=== PATIENT | male | born 1990 | race Caucasian/White ===

== ENCOUNTER 2018-02-25 09:29 | Emergency (ER) | payer OTHER ==
[~2018-02-25] VITALS: Ht 170.2 cm; Wt 74.8 kg
[~2018-02-25 09:29] MED LIST: AMPDEX10CR PO; BUPRENORPHIN-N1 EACH SL; Benadryl 50 mg50 MG PO; CLIN300 PO; CRUTCH2 USE; Cleocin HCl150 MG PO; Cleocin HCl300 MG PO; DIPHTC TP; DOXY100 PO; HYDACE5325 PO; HYDMOR2 PO; HYDMOR4 PO; HYDR1TAB94 PO; IBUP800 PO; Keflex500 MG PO; MAGIC MOUTHWASH; METCAR750 PO; NAPR500 PO; PRED10 PO; PRED20 PO; Percocet 5-3251 EACH PO; Prednisone20 MG PO; RXHYDMOR2 PO; SACC250C PO; SUBOXONE 8 MG-1 EACH SL; TRAM50 PO
[2018-02-25] MEDS ORDERED: CLIN300 PO (10:36)
== END 2018-02-25 10:43 | disposition home or self-care (01) ==
LOC: ER 09:29
DX: L03.116 Cellulitis of left lower limb (principal); Z88.0 Allergy status to penicillin; Z88.2 Allergy status to sulfonamides; Z79.899 Other long term (current) drug therapy; F17.210 Nicotine dependence, cigarettes, uncomplicated
CPT/HCPCS: 99282

== ENCOUNTER 2018-10-15 14:33 | Emergency (ER) | payer OTHER ==
[~2018-10-15] VITALS: Ht 170.2 cm; Wt 86.2 kg
[2018-10-15] MEDS ORDERED: AMPDEX10 (14:43)
[2018-10-15] MEDS ORDERED: Monodox100 MG PO (14:53)
== END 2018-10-15 15:06 | disposition home or self-care (01) ==
LOC: ER 14:33
DX: L03.113 Cellulitis of right upper limb (principal); Z88.0 Allergy status to penicillin; Z88.2 Allergy status to sulfonamides; Z79.899 Other long term (current) drug therapy; F17.210 Nicotine dependence, cigarettes, uncomplicated
CPT/HCPCS: 99283

== ENCOUNTER 2019-02-20 20:51 | Emergency (ER) | payer OTHER ==
[~2019-02-20] VITALS: Ht 170.2 cm; Wt 77.1 kg
[~2019-02-20 20:51] MED LIST changes: +AMPDEX10; +Monodox100 MG PO
[2019-02-20] MEDS ORDERED: SUBOXONE 8 MG-1 EACH PO (21:12)
[2019-02-20] MEDS ORDERED: AMPDEX5 PO (21:12)
[2019-02-20] MEDS ORDERED: CLON1 PO (21:13)
[2019-02-20] MEDS ORDERED: LAMO25 PO (21:14)
[2019-02-20] MEDS ORDERED: BACITRAYCIN PLU28 G1 TOP (23:20)
== END 2019-02-21 00:07 | disposition home or self-care (01) ==
LOC: ER 20:51
DX: T22.012A Burn of unspecified degree of left forearm, initial encounter (principal); T22.011A Burn of unspecified degree of right forearm, initial encounter; T31.0 Burns involving less than 10% of body surface; F11.20 Opioid dependence, uncomplicated; V49.9XXA Car occupant (driver) (passenger) injured in unspecified traffic accident, initial encounter; Z79.899 Other long term (current) drug therapy; F17.210 Nicotine dependence, cigarettes, uncomplicated
CPT/HCPCS: 16020; 71046; 99284-25

== ENCOUNTER 2019-07-03 22:08 | Emergency (ER) | payer SELFPAY ==
[~2019-07-03] VITALS: Ht 170.2 cm; Wt 72.6 kg
[~2019-07-03 22:08] MED LIST changes: +AMPDEX5 PO; +BACITRAYCIN PLU28 G1 TOP; +CLON1 PO; +LAMO25 PO; +SUBOXONE 8 MG-1 EACH PO
[2019-07-03] MEDS ORDERED: ONDA4ODT MM (23:58)
[2019-07-03] MEDS ORDERED: Vibramycin100 MG PO (23:58)
== END 2019-07-04 00:35 | disposition home or self-care (01) ==
LOC: ER 22:08
DX: L03.113 Cellulitis of right upper limb (principal); R11.0 Nausea; F41.9 Anxiety disorder, unspecified; Z88.0 Allergy status to penicillin; Z88.2 Allergy status to sulfonamides; Z79.899 Other long term (current) drug therapy; F17.210 Nicotine dependence, cigarettes, uncomplicated
CPT/HCPCS: 96372; 99283-25; J0696

== ENCOUNTER 2019-08-16 10:38 | Inpatient (IN) | payer OTHER ==
[~2019-08-16] VITALS: Ht 170.2 cm; Wt 73.7 kg
[~2019-08-16 10:38] MED LIST changes: -AMPDEX5 PO; +Amphetamine Sal20 MG PO; +BUPRENORPHINE HC8 MG SL; +CLON.5 PO; -CLON1 PO; +ONDA4ODT MM; -SUBOXONE 8 MG-1 EACH PO; +Vibramycin100 MG PO
[2019-08-16 11:51] LABS: BASOPHILS ABSOLUTE AUTO 0.07 K/mm3 (0.00-0.23); BASOPHILS PERCENT AUTO 0 % (0-2); EOSINOPHILS ABSOLUTE AUTO 0.21 K/mm3 (0.00-0.68); EOSINOPHILS PERCENT AUTO 1 % (0-6); Hemoglobin 11.8 g/dL (13.5-17.5); IMMATURE GRAN PERCENT AUTO 1 % (0-1); LYMPHOCYTES ABSOLUTE AUTO 2.58 K/mm3 (0.84-5.20); LYMPHOCYTES PERCENT AUTO 12 % (21-46); MONOCYTES ABSOLUTE AUTO 1.84 K/mm3 (0.16-1.47); MONOCYTES PERCENT AUTO 9 % (4-13); Mean Corpuscular HGB 28.1 pg (26.0-34.0); Mean Corpuscular HGB Conc 32.8 g/dL (31.5-36.5); Mean Corpuscular Volume 86 fL (80-100); NEUTROPHILS ABSOLUTE AUTO 16.21 K/mm3 (1.96-9.15); NEUTROPHILS PERCENT AUTO 77 % (41-73); RDW Coefficient Variation 13.9 % (11.7-14.2); White Blood Cell Count 21.11 K/mm3 (4.00-11.30)
[2019-08-16 12:04] LABS: Alanine Aminotransfer (ALT/SGP 15 U/L (12-78); Albumin/Globulin Ratio 0.5 (0.8-1.8); Alk Phos 118 U/L (50-136); Anion Gap 6 mmol/L (6-16); Aspartate Aminotrans (AST/SGOT 14 U/L (12-37); Bilirubin, Total 0.4 mg/dL (0.1-1.0); Blood Urea Nitrogen 11 mg/dL (8-24); Bun/Creatinine Ratio 14.8 (12.0-20.0); CO2, Blood 25 mmol/L (21-32); Chloride, Blood 104 mmol/L (98-108); Creatinine, Blood 0.74 mg/dL (0.60-1.20); Globulin, Blood 5.7 g/dL (2.2-4.0); Glomerular Filtration Rate >60 (60-); Glucose, Blood 94 mg/dL (70-99); Potassium, Blood 4.2 mmol/L (3.5-5.5); Sodium, Blood 135 mmol/L (136-145); Total Protein, Blood 8.7 g/dL (6.4-8.2)
[2019-08-16 12:09] LABS: Mean Platelet Volume 8.9 fL (9.1-12.4); Platelet Count 407 K/mm3 (150-400)
[2019-08-16] MEDS ORDERED: Lamictal25 MG PO (12:41)
[2019-08-16] MEDS ORDERED: LAMO100 PO (12:41)
[2019-08-17 01:13] LABS: U Amphetamine Screen Not Detected; U Barbituate Screen Not Detected; U Benzodiazapine Screen Not Detected; U Buprenorphine Screen Not Detected; U Cannabinoids Screen DETECTED; U Cocaine Screen Not Detected; U Methadone Screen Not Detected; U Methamphetamine Screen DETECTED; U Opiates Screen DETECTED; U Oxycodone Screen Not Detected; U Phencyclidine Screen Not Detected; U Propoxyphene Screen Not Detected
[2019-08-17 13:01] LABS: BASOPHILS ABSOLUTE AUTO 0.05 K/mm3 (0.00-0.23); BASOPHILS PERCENT AUTO 0 % (0-2); EOSINOPHILS ABSOLUTE AUTO 0.14 K/mm3 (0.00-0.68); EOSINOPHILS PERCENT AUTO 1 % (0-6); Hematocrit 31.6 % (37.0-53.0); Hemoglobin 10.2 g/dL (13.5-17.5); IMMATURE GRAN PERCENT AUTO 1 % (0-1); LYMPHOCYTES ABSOLUTE AUTO 2.55 K/mm3 (0.84-5.20); LYMPHOCYTES PERCENT AUTO 20 % (21-46); MONOCYTES ABSOLUTE AUTO 1.46 K/mm3 (0.16-1.47); MONOCYTES PERCENT AUTO 12 % (4-13); Mean Corpuscular HGB 27.9 pg (26.0-34.0); Mean Corpuscular HGB Conc 32.3 g/dL (31.5-36.5); Mean Corpuscular Volume 86 fL (80-100); Mean Platelet Volume 9.2 fL (9.1-12.4); NEUTROPHILS ABSOLUTE AUTO 8.29 K/mm3 (1.96-9.15); NEUTROPHILS PERCENT AUTO 66 % (41-73); Platelet Count 336 K/mm3 (150-400); RDW Coefficient Variation 13.9 % (11.7-14.2); RDW Standard Deviation 44.5 fL (35.1-46.3); Red Blood Cell Count 3.66 M/mm3 (4.30-5.90); White Blood Cell Count 12.59 K/mm3 (4.00-11.30)
[2019-08-17 15:51] LABS: Vancomycin, Trough 9.7 ug/mL (5.0-10.0)
[2019-08-18 05:20] LABS: BASOPHILS ABSOLUTE AUTO 0.04 K/mm3 (0.00-0.23); BASOPHILS PERCENT AUTO 1 % (0-2); EOSINOPHILS PERCENT AUTO 2 % (0-6); Hematocrit 29.5 % (37.0-53.0); Hemoglobin 9.3 g/dL (13.5-17.5); IMMATURE GRAN ABSOLUTE AUTO 0.11 K/mm3 (0.00-0.10); IMMATURE GRAN PERCENT AUTO 1 % (0-1); LYMPHOCYTES ABSOLUTE AUTO 3.29 K/mm3 (0.84-5.20); LYMPHOCYTES PERCENT AUTO 38 % (21-46); MONOCYTES ABSOLUTE AUTO 1.02 K/mm3 (0.16-1.47); MONOCYTES PERCENT AUTO 12 % (4-13); Mean Corpuscular HGB 27.8 pg (26.0-34.0); Mean Corpuscular HGB Conc 31.5 g/dL (31.5-36.5); Mean Corpuscular Volume 88 fL (80-100); Mean Platelet Volume 9.1 fL (9.1-12.4); NEUTROPHILS ABSOLUTE AUTO 4.02 K/mm3 (1.96-9.15); NEUTROPHILS PERCENT AUTO 46 % (41-73); Platelet Count 297 K/mm3 (150-400); RDW Coefficient Variation 14.4 % (11.7-14.2); RDW Standard Deviation 45.9 fL (35.1-46.3); Red Blood Cell Count 3.35 M/mm3 (4.30-5.90); White Blood Cell Count 8.68 K/mm3 (4.00-11.30)
[2019-08-18 05:36] LABS: Anion Gap 5 mmol/L (6-16); Blood Urea Nitrogen 14 mg/dL (8-24); Bun/Creatinine Ratio 19.4 (12.0-20.0); CO2, Blood 25 mmol/L (21-32); Chloride, Blood 113 mmol/L (98-108); Creatinine, Blood 0.72 mg/dL (0.60-1.20); Glomerular Filtration Rate >60 (60-); Glucose, Blood 81 mg/dL (70-99); Phosphorus, Blood 3.9 mg/dL (2.5-4.9); Potassium, Blood 4.2 mmol/L (3.5-5.5); Sodium, Blood 143 mmol/L (136-145)
[2019-08-18 16:58] LABS: Vancomycin, Trough 26.3 ug/mL (5.0-10.0)
[2019-08-19] MEDS ORDERED: Culturelle1 CAP PO (12:27)
[2019-08-19] MEDS ORDERED: CLIN300 PO (12:29)
[2019-08-19] MEDS ORDERED: CEFU500T30 PO (12:29)
== END 2019-08-19 13:10 | disposition home or self-care (01) | DRG 580 ==
LOC: ER 10:38 → MEDS 13:59 → ENPENDDIS 08-19 12:53 → MEDS 08-19 13:10
PROVIDERS: Emergency Medicine; ADMIT Internal Medicine
PROC: 0JDH0ZZ Extraction of Left Lower Arm Subcutaneous Tissue and Fascia, Open Approach (ICD-10-PCS; principal; 2019-08-17)
DX: L02.414 Cutaneous abscess of left upper limb (principal); L02.415 Cutaneous abscess of right lower limb; L03.115 Cellulitis of right lower limb; F31.9 Bipolar disorder, unspecified; F17.210 Nicotine dependence, cigarettes, uncomplicated; F90.9 Attention-deficit hyperactivity disorder, unspecified type; B95.62 Methicillin resistant Staphylococcus aureus infection as the cause of diseases classified elsewhere; B95.0 Streptococcus, group A, as the cause of diseases classified elsewhere; L03.114 Cellulitis of left upper limb
CPT/HCPCS: 36415; 36556; 71045; 80053; 80069; 80202; 83605; 85025; 85651; 86140; 87040; 87070; 87075; 87077; 87147; 87186; 87205; 93306; 96361-59; 96374-59; 96375-59; 96376-59; 99284-25; C1751; J0696; J1885; J1956; J2550; J3010; J3370; J7030

== ENCOUNTER 2019-08-21 14:07 | Emergency (ER) | payer OTHER ==
[~2019-08-21] VITALS: Ht 170.2 cm; Wt 68.0 kg
[~2019-08-21 14:07] MED LIST changes: +CEFU500T30 PO; +Culturelle1 CAP PO; +LAMO100 PO; +Lamictal25 MG PO
[2019-08-21 16:07] LABS: BASOPHILS ABSOLUTE AUTO 0.07 K/mm3 (0.00-0.23); BASOPHILS PERCENT AUTO 1 % (0-2); EOSINOPHILS ABSOLUTE AUTO 0.28 K/mm3 (0.00-0.68); EOSINOPHILS PERCENT AUTO 3 % (0-6); Hematocrit 31.8 % (37.0-53.0); Hemoglobin 10.4 g/dL (13.5-17.5); IMMATURE GRAN ABSOLUTE AUTO 0.19 K/mm3 (0.00-0.10); IMMATURE GRAN PERCENT AUTO 2 % (0-1); LYMPHOCYTES PERCENT AUTO 25 % (21-46); MONOCYTES ABSOLUTE AUTO 1.15 K/mm3 (0.16-1.47); MONOCYTES PERCENT AUTO 10 % (4-13); Mean Corpuscular HGB 28.5 pg (26.0-34.0); Mean Corpuscular HGB Conc 32.7 g/dL (31.5-36.5); Mean Corpuscular Volume 87 fL (80-100); Mean Platelet Volume 8.7 fL (9.1-12.4); NEUTROPHILS ABSOLUTE AUTO 6.83 K/mm3 (1.96-9.15); NEUTROPHILS PERCENT AUTO 60 % (41-73); Platelet Count 446 K/mm3 (150-400); RDW Coefficient Variation 14.1 % (11.7-14.2); RDW Standard Deviation 44.8 fL (35.1-46.3); Red Blood Cell Count 3.65 M/mm3 (4.30-5.90); White Blood Cell Count 11.32 K/mm3 (4.00-11.30)
[2019-08-21 16:32] LABS: Alanine Aminotransfer (ALT/SGP 24 U/L (12-78); Albumin, Blood 2.8 g/dL (3.4-5.0); Albumin/Globulin Ratio 0.5 (0.8-1.8); Alk Phos 88 U/L (50-136); Anion Gap 4 mmol/L (6-16); Aspartate Aminotrans (AST/SGOT 18 U/L (12-37); Bilirubin, Total 0.1 mg/dL (0.1-1.0); Blood Urea Nitrogen 15 mg/dL (8-24); Bun/Creatinine Ratio 20.2 (12.0-20.0); CO2, Blood 27 mmol/L (21-32); Calcium, Blood 8.6 mg/dL (8.5-10.1); Chloride, Blood 105 mmol/L (98-108); Creatinine, Blood 0.74 mg/dL (0.60-1.20); Globulin, Blood 5.3 g/dL (2.2-4.0); Glomerular Filtration Rate >60 (60-); Glucose, Blood 93 mg/dL (70-99); Potassium, Blood 4.1 mmol/L (3.5-5.5); Sodium, Blood 136 mmol/L (136-145); Total Protein, Blood 8.1 g/dL (6.4-8.2); Troponin I <0.015 ng/mL (0.000-0.040)
== END 2019-08-21 18:17 | disposition home or self-care (01) ==
LOC: ER 14:07
PROVIDERS: Physician Assistant
DX: L03.116 Cellulitis of left lower limb (principal); L03.115 Cellulitis of right lower limb; F17.210 Nicotine dependence, cigarettes, uncomplicated; Z88.0 Allergy status to penicillin; Z88.2 Allergy status to sulfonamides; Z79.899 Other long term (current) drug therapy
CPT/HCPCS: 36415; 71046; 80053; 83605; 83880; 84484; 85025; 87040; 93005; 93010; 93970; 96374; 96375; 99284-25; J1170; J2405; J3010

== ENCOUNTER 2019-10-20 12:54 | Emergency (ER) | payer OTHER ==
[~2019-10-20] VITALS: Ht 170.2 cm; Wt 77.1 kg
[2019-10-20] MEDS ORDERED: IBUP600 PO (18:35)
[2019-10-20] MEDS ORDERED: Vibramycin100 MG PO (18:35)
[2019-10-20] MEDS ORDERED: LIDO700A20 TOP (18:35)
[2019-10-20] MEDS ORDERED: CLONAZEPAM0.5 MG (19:19)
== END 2019-10-20 15:41 | disposition left against medical advice (07) ==
LOC: ER 12:54
DX: Z53.21 Procedure and treatment not carried out due to patient leaving prior to being seen by health care provider (principal)
CPT/HCPCS: 99283

== ENCOUNTER 2019-10-20 15:54 | Emergency (ER) | payer OTHER ==
[~2019-10-20] VITALS: Ht 170.2 cm; Wt 77.1 kg
[2019-10-20] MEDS ORDERED: Vibramycin100 MG PO (18:35)
[2019-10-20] MEDS ORDERED: LIDO700A20 TOP (18:35)
[2019-10-20] MEDS ORDERED: IBUP600 PO (18:35)
[2019-10-20] MEDS ORDERED: CLONAZEPAM0.5 MG (19:19)
== END 2019-10-20 19:20 | disposition home or self-care (01) ==
LOC: ER 15:54
DX: L03.115 Cellulitis of right lower limb (principal); F31.9 Bipolar disorder, unspecified; F43.10 Post-traumatic stress disorder, unspecified; F41.9 Anxiety disorder, unspecified; F17.210 Nicotine dependence, cigarettes, uncomplicated; Z88.0 Allergy status to penicillin; Z88.2 Allergy status to sulfonamides
CPT/HCPCS: 76882; 99283-25; J1885

== ENCOUNTER 2019-10-24 11:51 | Inpatient (IN) | payer OTHER ==
[~2019-10-24] VITALS: Ht 170.2 cm; Wt 80.3 kg
[~2019-10-24 11:51] MED LIST changes: -CLON.5 PO; +CLONAZEPAM0.5 MG; +IBUP600 PO; -LAMO100 PO; +LIDO700A20 TOP; -Lamictal25 MG PO
[2019-10-24 13:18] LABS: BASOPHILS ABSOLUTE AUTO 0.07 K/mm3 (0.00-0.23); BASOPHILS PERCENT AUTO 1 % (0-2); EOSINOPHILS ABSOLUTE AUTO 0.21 K/mm3 (0.00-0.68); EOSINOPHILS PERCENT AUTO 2 % (0-6); Hemoglobin 11.4 g/dL (13.5-17.5); IMMATURE GRAN ABSOLUTE AUTO 0.05 K/mm3 (0.00-0.10); IMMATURE GRAN PERCENT AUTO 0 % (0-1); LYMPHOCYTES ABSOLUTE AUTO 2.96 K/mm3 (0.84-5.20); LYMPHOCYTES PERCENT AUTO 26 % (21-46); MONOCYTES ABSOLUTE AUTO 1.13 K/mm3 (0.16-1.47); MONOCYTES PERCENT AUTO 10 % (4-13); Mean Corpuscular HGB 27.6 pg (26.0-34.0); Mean Corpuscular HGB Conc 32.6 g/dL (31.5-36.5); Mean Corpuscular Volume 85 fL (80-100); Mean Platelet Volume 9.1 fL (9.1-12.4); NEUTROPHILS ABSOLUTE AUTO 6.87 K/mm3 (1.96-9.15); NEUTROPHILS PERCENT AUTO 61 % (41-73); Platelet Count 368 K/mm3 (150-400); RDW Coefficient Variation 14.6 % (11.7-14.2); RDW Standard Deviation 45.3 fL (35.1-46.3); Red Blood Cell Count 4.13 M/mm3 (4.30-5.90); White Blood Cell Count 11.29 K/mm3 (4.00-11.30)
[2019-10-24 13:30] LABS: Alanine Aminotransfer (ALT/SGP 27 U/L (12-78); Albumin, Blood 3.3 g/dL (3.4-5.0); Albumin/Globulin Ratio 0.7 (0.8-1.8); Alk Phos 99 U/L (50-136); Anion Gap 4 mmol/L (6-16); Aspartate Aminotrans (AST/SGOT 25 U/L (12-37); Bilirubin, Total 0.4 mg/dL (0.1-1.0); Blood Urea Nitrogen 11 mg/dL (8-24); Bun/Creatinine Ratio 13.6 (12.0-20.0); CO2, Blood 29 mmol/L (21-32); Calcium, Blood 9.1 mg/dL (8.5-10.1); Chloride, Blood 103 mmol/L (98-108); Creatinine, Blood 0.81 mg/dL (0.60-1.20); Globulin, Blood 4.9 g/dL (2.2-4.0); Glomerular Filtration Rate >60 (60-); Glucose, Blood 83 mg/dL (70-99); Potassium, Blood 4.2 mmol/L (3.5-5.5); Sodium, Blood 136 mmol/L (136-145); Total Protein, Blood 8.2 g/dL (6.4-8.2)
[2019-10-24] MEDS ORDERED: CLON.5 PO (14:57)
[2019-10-24] MEDS ORDERED: Lamictal25 MG PO (14:59)
[2019-10-24] MEDS ORDERED: LAMO100 PO (14:59)
[2019-10-24] MEDS ORDERED: BUPRENORPHINE HC8 MG SL (15:00)
[2019-10-24] MEDS ORDERED: METH10 PO (15:21)
--- NOTE | 2019-10-24 18:30 | NUR ---
PT ARRIVED TO ROOM 308 FROM ER [facility]IA [place] AT 1820. HE IS ALERT AND ORIENTED, INDEPENDENT IN ROOM. HE ARRIVED WITH IV VANCO ON PUMP AND PUMP BEEPING. PT SETTLED IN BED AND VANCO RESTARTED. PT WANTING TO GO OUTSIDE AFTER EATING HIS DINNER, INSTRUCTED THAT HE COULD NOT GO OUT WITH THE IV POLE. WILL CONTINUE TO MONITOR AND REPORT TO ONCOMING RN
--- NOTE | 2019-10-24 19:21 | NUR ---
LATE ENTRY 1914 PATIENT OUT TO SMOKE. EXPLAINED TO ME IN REPORT THAT NEITHER OF HIS IV'S ARE WORKING ANY LONGER. WELL WAS TOLD THAT HE COULD NOT LEAVE THE FLOOR WHILE HE WAS HOOKED UP TO HIS IV AT AROUND 1840. PATIENT TOOK OFF AROUND 184; STATING GOING ON A WALK. ESCORTED BACK TO HIS ROOM BY SECURITY.
--- NOTE | 2019-10-24 19:41 | NUR ---
LATE ENTRY 192 BACK FROM DOWN STAIRS.
--- NOTE | 2019-10-24 23:10 | NUR ---
7132 SPOKE TO ON-CALL PHYSICIAN DR. RUTH. PATIENTS IV TO REBECA NOT PATENT (REMOVED). PERIPHERAL TO L NECK PAINFUL UPON FLUSH. 2X RN HAVE TRIED AND BEEN UNSUCCESSFUL AT GAINING IV ACCESS. PATIENT IS REFUSING ANY FURTHER ATTEMPTS. IV VANCOMYCIN AT 2300, BUT UNABLE TO ADMINISTER DUE TO NOT IV ACCESS. DR. RUTH STATED TO CHART REFUSAL.
--- NOTE | 2019-10-25 00:05 | NUR ---
0000 TRANSFER EVIDENT TAPE PLACED TO PERIPHERAL L NECK IV
--- NOTE | 2019-10-25 02:23 | NUR ---
0222 PATIENT OUTSIDE TO SMOKE.
--- NOTE | 2019-10-25 04:27 | NUR ---
SHIFT SUMMARY A/O, ABLE TO MAKE NEEDS KNOWN. COOPERATIVE WITH CARE. ANSWERS QUESTIONS APPROPRIATELY. CURRENT EVERYDAY SMOKER; OUT TO SMOKE SEVERAL TIMES, BUT ALERTED THIS RN PRIOR TO LEAVING. TAPER EVIDENT TAPE ON IV THAT PATIENT STATES HURTS WHEN FLUSHED AND WOULD NOT ALLOW TO USE. C/O PAIN X1 TO RLE; MEDICATED PER EMAR. AFEBRILE. APPEARED TO REST MUCH OF SHIFT. NO ACUTE CHANGES NOTED OVERNIGHT. BED IN LOWEST POSITION. CALL LIGHT AND BELONINGS WITHIN REACH. WCTM. REPORT TO ONCOMING RN.
[2019-10-25 05:24] LABS: Hemoglobin 12.1 g/dL (13.5-17.5); Mean Corpuscular HGB 27.6 pg (26.0-34.0); Mean Corpuscular HGB Conc 31.8 g/dL (31.5-36.5); Mean Corpuscular Volume 87 fL (80-100); Mean Platelet Volume 9.1 fL (9.1-12.4); Platelet Count 385 K/mm3 (150-400); RDW Coefficient Variation 14.8 % (11.7-14.2); RDW Standard Deviation 47.1 fL (35.1-46.3); Red Blood Cell Count 4.39 M/mm3 (4.30-5.90); White Blood Cell Count 7.58 K/mm3 (4.00-11.30)
[2019-10-25 05:48] LABS: Anion Gap 2 mmol/L (6-16); Blood Urea Nitrogen 20 mg/dL (8-24); Bun/Creatinine Ratio 24.4 (12.0-20.0); CO2, Blood 28 mmol/L (21-32); Calcium, Blood 8.9 mg/dL (8.5-10.1); Chloride, Blood 106 mmol/L (98-108); Creatinine, Blood 0.82 mg/dL (0.60-1.20); Glomerular Filtration Rate >60 (60-); Glucose, Blood 92 mg/dL (70-99); Potassium, Blood 4.3 mmol/L (3.5-5.5); Sodium, Blood 136 mmol/L (136-145)
--- NOTE | 2019-10-25 06:17 | NUR ---
0615 PATIENT OUTSIDE TO SMOKE. TAPER EVIDENT TAPE INTACT
--- NOTE | 2019-10-25 07:57 | NUR ---
0757 PT HAS NO PATENT IV FOR ORDERED IV ABX. WHEN ASKED ABOUT PUTTING IN A PICC LINE HE SAID HE DIDNT WANT ONE THEY NEVER ADVANCE. THIS NURSE EXPLAINED THAT HE IS IN NEED OF IV ABX DUE TO HIS CELLULITIS IN HIS LEG . PT STATED THAT THE DOCTOR THEN NEEDED TO FIND AN ORAL MEDICATION TO FIX HIM. PT HAS IV IN NECK WHICH AT THIS TIME HE STATES HURTS WHEN USED. THERE IS NO REDNESS OR SWELLING ASSOCIATED WITH THIS SITE. PT REFUSES TO LET NURSE FLUSH LINE. DOCTOR NOTIFIED OF THIS.
--- NOTE | 2019-10-25 10:35 | NUR ---
0840 PT DRESSED HIMSELF AND WENT OUT TO SMOKE.
--- NOTE | 2019-10-25 18:02 | NUR ---
PT HAS SLEPT, ATE, AND SMOKED THROUGH OUT THE DAY. IV REPLACED EARLIER IN THE DAY. SURGICAL CONSULT CALLED TO [facility] .
--- NOTE | 2019-10-26 04:35 | NUR ---
SHIFT SUMMARY A/O, ABLE TO MAKE NEEDS KNOWN. COOPERATIVE WITH CARE. CALLS AND ANSWERS QUESTIONS APPROPRIATELY. C/O PAIN/DISCOMFORT TO RLE; MEDICATED PER EMAR. INDEPENDENT IN ROOM. OUT TO SMOKE X1; ALERTED STAFF PRIOR TO LEAVING FLOOR AND WAS BACK WITHIN 10 MINUTES. IV ABX INFUSED WITHOUT COMPLICATION. NO ACUTE CHANGES NOTED OVERNIGHT. VSS/AFEBRILE. BED IN LOWEST POSITION. CALL LIGHT AND BELONGINGS WITHIN REACH. WCTM. REPORT TO ONCOMING RN.
--- NOTE | 2019-10-26 05:19 | NUR ---
3794 PATIENT MOANING AND SCREAMING. WALKED INTO ROOM STATED, "CAN I GET A SPRITE OR SOMETHING, MY STOMACH HURTS REALLY BAD. WENT TO GET SPRITE AND BRING IT IN. PATIENT ACTIVELY VOMITING IN BATHROOM. GIVEN ZOFRAN IV. PATIENT PROFUSELY SWEATING. STATED HE WOULD LIKE HIS METHADONE. THIS RN STATED I WOULD CALL THE DOCTOR AND LET HIM KNOWN.
--- NOTE | 2019-10-26 15:35 | NUR ---
Patient gave verbal permission for me to care for him tomorrow on 10/27/2019.
--- NOTE | 2019-10-26 18:23 | NUR ---
PT AOX4 CAN BE COOPERATIVE OR IMPATIENT JUST SEEMS TO CHANGE OFF AND ON. PT IS NOT TOLERANT OF BEING POKED FOR BLOOD DRAWS AND REFUSED AM LABS. DR MOLINA NOTIFIED AND PT WAS TALKED TO, BUT EVEN AFTER HE AGREED TO MORE TRYS NO LABS COLLECTED. DR MOLINA CHANGE EMAR MEDS AND LABS WERE CANCELLED. PT HAS BEEN OUT TO SMOKE X3 TODAY AND WILL TRY TO UNHOOK FROM IV IF HE HAS TO WAIT TO BE UNHOOKED. PT HAD NAUSEA X1 AND WAS TREATED PER EMAR. WILL CONTINUE TO MONITOR.
--- NOTE | 2019-10-26 19:15 | NUR ---
AMBULATION/OUTSIDE PT UP TO GO FOR WALK OUTSIDE STATES HE IS "GOING TO SMOKE." WRAPPED IV IN TAMPER TAPE & COBAN. WCTM.
--- NOTE | 2019-10-27 05:20 | NUR ---
SHIFT SUMMARY THIS AM @0400 PT IS NAUSEATED & STATES HE IS GOING TO BATHROOM TO THROW UP, ASKS IF HE CAN RECIEVE ORDERED METHADONE EARLY & STATES HE USUALLY TAKES IT AROUND 0600 IN THE MORNING. ALSO STATES HIS DOSE OF METHADONE IS SUPPOSE TO GO UP EVERY OTHER DAY BY 5MG PER [facility] PHYSICIAN. CALLED DR HUNTLEY & HE CHANGED METHADONE FOR 0600 & STATED OKAY TO GIVE EARLY, ALSO ORDERED 4MG SL ZOFRAN FOR NAUSEA SINCE PT HAD NO IV ACCESS AT TIME OF FEELING NAUSEATED & CHARGE NURSE WAS WORKING ON GETTING ANOTHER IV PLACED. REPORTS 8/10 PAIN IN RLE WHERE ABCESS IS LOCATED, THE RLE IS VERY RED & WARM TO TOUCH. VSS. AOX4. REPORTS IT HAS BEEN 12 DAYS SINCE HE LAST USED HEROIN. HAS GONE OUTSIDE 5X TO SMOKE, TAPER TAPE & COBAN HAVE BEEN PLACED ON IV, W/O EVIDENCE OF TAMPERING. PT HAS BEEN NPO SINCE MIDNIGHT EXCEPT A SIP OF WATER W/MEDS THIS MORNING FOR POSSIBLE I&D TODAY. CALL LIGHT IN REACH. WCTM.
--- NOTE | 2019-10-27 08:18 | NUR ---
SPOKE WITH NIKOLAI AT [facility] ABOUT PTS CURRENT METHADONE DOSING. PT WITHINE EARSHOT OF CONVERSATION. [facility] STAFF REPORTED PT WAS TO START AT 50MG TODAY AND THEN GO UP TO 55MG ON SaturdayOct. PT AWARE OF WHEN CHANGE IS SUPPOSED TO BE. WILL SPEAK WITH MD ABOUT WHEN NEXT INCREASE IS SUPPOSED TO BE. PT VERY PUSHY AND ANXIOUS ABOUT GETTING DOSING CORRECT AND REQUESTING MULTIPLE TIMES BEFORE ACTION COULD BE TAKEN TO VERIFY METHADONE DOSING. CALMED DOWN AFTER INFORMATION OBTAINED.
--- NOTE | 2019-10-27 16:51 | NUR ---
History, Chart, Medications and Allergies reviewed before start of procedure.Patient confirms NPO status and agrees with scheduled surgery. Pre-Op teaching done. Pt verbalizes understanding.
--- NOTE | 2019-10-27 18:16 | NUR ---
SHIFT SUMMARY PT UP AND AMBULATING AROUND ROOM AND HOSPITAL. DID GO OUTSIDE AND SMOKE 1-2 TIMES TODAY DESPITE BEING ENCOURAGED TO NOT SMOKE AND EDUCATION PROVIDED ABOUT RISKS WITH SMOKING AND SURGERY. CONTINUED WITH PERIODS OF ANXIETY SEVERAL TIMES TODAY BUT WAS SELF RESOLVING. DAY SURGERY HERE TO PICK PT UP AT 1530 FOR I AND D OF R CALF. HASN'T RETURNED YET FROM OR.
--- NOTE | 2019-10-27 20:31 | NUR ---
1924- PATIENT RETURNED TO ROOM FROM OR JUST REPORT WAS BEING GIVEN. MUSHROOM CUTTER ASSISTED HIM INTO BED. THE NURSE WAS FINISHING GIVING ME REPORT ON THE OTHER PATIENTS, DEBI WAS WALKING OUT OF THE ROOM WITH HIS IV POLE FULLY CLOTHED, STATING HE WAS GOING TO THE SNACK MACHINE. HE WAS ASKING FOR PAIN MEDS AND FOOD ON RETURN TO THE ROOM. 1944- DEBI WAS BACK IN ROOM, DISCUSSED PAIN MANAGEMENT AND NEED TO CALL MD FOR PAIN MED ORDERS NONE WERE ORDERED YET. HE ASKED TO HAVE THE SAME MEDS HE HAD IN PACU WHICH WAS FENTANYL 200MCQ, DILUADID 1MG AND 0.5MG OF ATIVAN. INFORMED HIM THEY PROBALLY WILL NOT ORDER THAT MEDS ON THE FLOOR ARE DIFFERENT THEN OR. HE SAID OK. 2004- SPOKE TO SU AGUIAR REGARDING PAIN MANAGMENT. INFORMED OF REQUEST AND HISTORY. AGREED TO HAVE JUST ATIVAN FOR ANXIETY AND DILUDID FOR PAIN MANAGEMENT. 2031- DEBI WAS IN ROOM AFTER GOING BACK OUTSIDE AGAIN FOR THE SECOND TIME. INFORMED HIM OF THE MEDICATIONS THAT WERE ORDERED. STATES PAIN IS 9/10, GAVE ATIVAN AND DILUDID ALONG WITH NIGHT MEDICATIONS.
--- NOTE | 2019-10-28 00:35 | NUR ---
CALLED AND GOT ORDER FOR NS KVO TO KEEP LINE PATENT AND FOR ANTIBOTIC FLUSH.
--- NOTE | 2019-10-28 02:30 | NUR ---
DEBI IS AWAKE AND IMMEDIATLY ASKED FOR PAIN MEDICATION AND ANXIETY MEDS. REMINED HIM IT WAS JUST GIVEN AT 119. HE SAID HE DOES NOT REMEMBER IT. REPORTS HIS PAIN IS 10/10, AND HE FEELS HE NEEDS TO PLAY CATCH UP. INFORMED HIM HE HAS NOT MISSED ANY DOSE SO FAR, HE WAS SHOCKED TO HEAR THAT. TYLENOL GIVEN INSTEAD. BLOOD PRESSURE LOW POSSIBLY RELATED TO PAIN MEDICATION, INFORMED HIM THAT HE SHOULD TRY AND PUSH OFF THE MEDICATION OR TAKE HALF DOSE. HE SAID HE WILL WAIT BUT TAKE A FULL DOSE. SO HE GOT UP AND WALKED OUTSIDE TO SEE IT WILL BRING HIS BP UP.
[2019-10-28 06:25] LABS: Albumin, Blood 3.2 g/dL (3.4-5.0); Anion Gap 5 mmol/L (6-16); Blood Urea Nitrogen 19 mg/dL (8-24); Bun/Creatinine Ratio 24.1 (12.0-20.0); CO2, Blood 25 mmol/L (21-32); Chloride, Blood 106 mmol/L (98-108); Creatinine, Blood 0.79 mg/dL (0.60-1.20); Glomerular Filtration Rate >60 (60-); Glucose, Blood 116 mg/dL (70-99); Phosphorus, Blood 3.9 mg/dL (2.5-4.9); Potassium, Blood 4.8 mmol/L (3.5-5.5); Sodium, Blood 136 mmol/L (136-145)
--- NOTE | 2019-10-28 07:30 | NUR ---
SHIFT SUMMARY: MAT ARRIVED FROM PACU AT START OF SHIFT. IT WAS DIFFICULT TO DO POST OP VITALS HE CONTINUED TO LEAVE THE ROOM, TO GO GET SNACKS HE PUT IT. HE COMPLAINED OF PAIN SOON HE ARRIVED BEFORE HE WAS EVEN TRANSFERRED OUT OF BED. THERE WERE NO MEDICAL FLOOR ORDERS SO HAD TO CALL MD FOR PAIN MEDICATION AND ANXIETY MEDS. SU RAILROAD CAR CLEANER ORDERED DILAUDID IV AND ATIVAN PO. THIS WAS GIVEN, AND PATIENT REQUESTED THESE TWO MEDS ON THE DOT THROUGHOUT THE NIGHT. HE HAS BEEN IN AND OUT OF HIS ROOM ALL NIGHT, FOR SHORT PERIODS OF TIME. HE DID SLEEP FOR A FEW HOURS ONLY. IV CONTINUED TO INFUSE AT KVO TO KEEP LINE OPEN. VS HAVE REMAINED STABLE WITH SMALL DROP IN BP BUT RETAKE WAS NORMAL. PAIN WAS MANAGED WITH DILUDID. INFORMED PATIENT THAT HE WILL NOT BE HAVING THE PAIN MEDICATION FOR LONG DAY SHIFT WILL BE CHANGING HIS PAIN MED FOR HIM TO BE DISCHARGED HOME. THIS AM LAB NOTICED HE HAD IV FLUSHES IN HIS POCKET. ASKED THE PATIENT IF HE HAD THEM, HE PULLED OUT A FLUSH FROM HIS POCKET. WHEN ASKED WHY HE HAD IT HE TOLD THIS RN THAT HE FOUND IT ON THE FLOOR IT FEEL OFF HIS IV POLE. THIS NURSE NEVER LEFT A FLUSH IN THE ROOM LAST NIGHT, NOT SURE WHERE HE GOT THE FLUSH FROM. DRESSING STAYED INTACT ALL NIGHT, NO DRAINAGE NOTED. DAY SHIFT RN NOTIFED OF EVENTS THROGHOUT THE NIGHT.
[2019-10-28 08:45] LABS: BASOPHILS ABSOLUTE AUTO 0.03 K/mm3 (0.00-0.23); BASOPHILS PERCENT AUTO 0 % (0-2); EOSINOPHILS ABSOLUTE AUTO 0.01 K/mm3 (0.00-0.68); EOSINOPHILS PERCENT AUTO 0 % (0-6); Hematocrit 38.9 % (37.0-53.0); Hemoglobin 12.4 g/dL (13.5-17.5); IMMATURE GRAN ABSOLUTE AUTO 0.09 K/mm3 (0.00-0.10); IMMATURE GRAN PERCENT AUTO 1 % (0-1); LYMPHOCYTES ABSOLUTE AUTO 2.05 K/mm3 (0.84-5.20); LYMPHOCYTES PERCENT AUTO 24 % (21-46); MONOCYTES ABSOLUTE AUTO 0.89 K/mm3 (0.16-1.47); MONOCYTES PERCENT AUTO 10 % (4-13); Mean Corpuscular HGB 27.1 pg (26.0-34.0); Mean Corpuscular HGB Conc 31.9 g/dL (31.5-36.5); Mean Corpuscular Volume 85 fL (80-100); Mean Platelet Volume 8.8 fL (9.1-12.4); NEUTROPHILS PERCENT AUTO 65 % (41-73); Platelet Count 412 K/mm3 (150-400); RDW Coefficient Variation 14.1 % (11.7-14.2); RDW Standard Deviation 43.4 fL (35.1-46.3); Red Blood Cell Count 4.57 M/mm3 (4.30-5.90); White Blood Cell Count 8.67 K/mm3 (4.00-11.30)
[2019-10-28 16:36] LABS: Vancomycin, Trough 11.6 ug/mL (5.0-10.0)
--- NOTE | 2019-10-28 17:23 | NUR ---
SHIFT SUMMARY PT WAS PUSHY THIS MORNING WHEN HE WANTED HIS MEDICATIONS. HAD CALLED WITH CALL BUTTON AND WHEN HE WAS TOLD THIS NURSE WOULD BE THERE SOON I WAS ABLE TO GET TO HIM, HE WATCHED THE CLOCK AND STARTED PACING THE HALLS WITH HIS SHIRT OFF LOOKING FOR ME. EXPLAINED TO PT HE WAS NOT TO BE OUT IN THE HALLWAYS SEEKING ME OUT WHEN HE HAD BEEN TOLD I WOULD BE TO HIS ROOM SOON I COULD. WAS FORCEFUL AGAIN IN REGARDS TO HIS MEDS AFTER THAT INCIDENT BUT HAS BEHAVED TOWARD STAFF BETTER SINCE THEN TODAY. HAS GONE OUT OF THE ROOM SEVERAL TIMES TODAY WITH MOST OF THOSE TIMES BEING REMINDED HE ISN'T TO TAKE IV PUMP AND POLE OUTSIDE. WAS OUTSIDE FOR JUST PAST AN HOUR AND WAS NOTIFIED OF 1 HOUR TIME LIMIT. DRESSING REMAINS IN PLACE TO RLE.
--- NOTE | 2019-10-28 19:46 | NUR ---
1914- PATIENT VERY ANGRY AND AGGRUMENTIVE WITH STAFF, HE IS BEING TOLD TO STAY IN HIS ROOM SO STAFF CAN START AN IV, THAT WAY HIS ANTIBOTICS THAT WERE DUE AT 1700 CAN INFUSE. CURRENTLY LETICIA RN IN ROOM TO CALM HIM DOWN AND TO START AN IV. 1919- PATIENT STILL FRUSTRATED, LETICIA GOT A GOOD 18 G IN THE LEFT UPPER ARM, FLUSHES WELL. HE IS INSISTING TO GO OUTSIDE TO SMOKE. HE WAS TOLD THIS WAS THE LAST TIME HE IS TO GO OUT TONIGHT. HE SAID OK. 1939- PATIENT BACK IN THE ROOM. HE WAS VERY ANXIOUS, LOOKING THROUGH HIS PHONE BUT DID NOT KNOW WHAT HE WAS DOING. ASKING TO GET HOOKED UP TO HIS ANTIBOTICS AND WAS RUSHING ME TO HURRY UP. EYES WERE PIN POINT, HE WAS NOT MAKING MUCH SINCE HE WAS SCATTERED SPEECH. EVERY NOW AND THEN HIS EYES WOULD ROLL BACK IN HIS HEAD LIKE HE WAS GOING TO PASS OUT BUT STATES NO HE FELT FINE. VERBALIZED TO HIM THE IMPORTANCE OF THE ANTIBOTICS AND HOW SEVERE HIS INFECTION IS. WENT TO FLUSH HIS NEW IV, AND HE YELLED IN PAIN, CUSSING AND STATING IT HURTS. THERE WAS LARGE LUMP THAT WAS FORMED AT THE SITE. LINE WAS NO LONGER GOOD. ASKED HIM FI ANYTHING HAPPENED TO THE LINE, HE GOT VERY AGGRESSIVE CUSSING AND YELLING. SO WALKED OUT OF ROOM. 1945-PATIENT WAS BACK ON HIS PHONE TRYING TO SET UP ANOTHER PHONE, SWAYING ON THE BENCH IN THE ROOM BACK AND FORTH, WITH EYES GLAZED OVER. HE WAS HAVING A HARD TIME CONCENTRATING OR UNDERSTANDING WHAT WAS GOING ON. WHEN SPEAKING TO HIM HIS COMPERHENSION WAS DIMINSHED THEN PREVIOUSLY, AND HE CONTINUED TO SAY HE CAN'T DO MORE THEN ONE THING AT A TIME FIXATED ON THE PHONE. TRIED TO EDUCATE HIM AGAIN ABOUT HIS IV, AND WE DISCUSSED POSSIBLE PO MEDICATIONS WITH NO LONGER HAVING AN IV. HAD LETICIA SANTANA COME LOOK AT IV, SHE DISCONTINUED IT, DUE TO NO PATENTCY. WILL CALL
--- NOTE | 2019-10-28 21:58 | NUR ---
2004- PATIENT STANDING IN THE MIDDLE OF THE ROOM, IN A DAZE, SWAYING BACK AND FORTH, EYES GLAZED OVER. LIKE HE WAS OFF IN ANOTHER WORLD. ASKED IF HE WAS OK, HE SAID YES. ADMINISTERED HIS NIGHT TIME MEDS. INFORMED HIM AGAIN ABOUT THE IV AND POSSIBLY NEEDING TO TALK TO THE DOCTOR I HAVE NOT BEEN ABLE TO DO SO. 2029-LETICIA WAS HEADING IN THE ROOM TO START AN IV, INFORMED HER TO HOLD OFF TILL I TALK TO THE DOCTOR. SHE SAID THERE SHOULD HAVE NOT BEEN ANY REASON WHY THAT LAST IV WENT BAD. 2044 - PATIENT HEADING OUTSIDE AGAIN, I WAS TALKING TO THE DOCTOR ABOUT HIS IV. SPOKE TO DR. HUNTLEY ABOUT THE ISSUES OF HIM GOING OUTSIDE AND EVERY TIME HIS IV NO LONGER WORKS. INFORMED HIM ABOUT HIS BEHAVIOR CHANGE AND THAT THERE IS SUSPECION OF DRUG USE. ASKED IF IV CAN BE DC'S AND MEDS CHANGED TO PO. HE STATED THAT HIS INFECTION REQUIRES IV VANCO, THEREFORE ORDER WAS RECEIVED THAT THE PATIENT MUST REMAIN IN THE ROOM, IF HE LEAVES THE ROOM TO DISCHARGE HIM AMA. ALSO GOT ORDER FOR NICOTINE PATCH. 2109- CEMENTING BULK MATERIAL OPERATOR REPORTED THAT DOMINGA FINALLY CAME BACK TO ROOM BUT GRABBED HIS JACKET AND HEADED BACK OUTSIDE. 2157- DOMINGA RETURNED TO HIS ROOM WITH SNACKS AND DRINKS. INFORMED HIM HE MUST STAY IN THE ROOM WE NEED TO START THE IV AND GIVE ANTIBOTICS. INFORMED HIM GLUE SPECIALTY SUPERVISOR DAYSI WILL DO IT BY ULTRASOUND WHEN SHE HAS A MOMENT. HE AGREED TO STAY IN THE ROOM.
--- NOTE | 2019-10-29 00:10 | NUR ---
2325-DAYSI IN THE ROOM STARTING AN IV VIA ULTRASOUND. PATIENT IS LAYING IN THE BED, REALLY OUT OF IT, COULD BARLEY KEEP HIS EYES OPEN. SPEAKING IN SHORT PHRASES, BUT STILL SLIGHTLY CONFUSED ABOUT HIS SURROUNDINGS AND WHAT IS HAPPENING. ASKING FOR PAIN MEDICATION AND ANXIETY MEDS. WAS QUESTIONABLE AT FIRST WHETHER TO GIVE THEM, BUT AFTER SHE GOT THE IV STARTED HE JUMPED OUT OF BED TO GO USE THE BATHROOM. HAD HIS HOLD ON TO SECURE THE SITE, WHEN THE IV STARTED TO BEEP AND THIS FRUSTRATED HIM IMMEDIATLY CAUSING HIS ANXIETY TO GO UP AND HIM BECOME IRRITABLE IN SECONDS. SHE HAD TO ADJUST THE IV A LITTLE FOR IT TO FLUSH DUE TO VALVE. SHE GOT IT FIXED AND VANCO WAS INFUSING WELL. DAYSI RN AND I INFORMED HIM AT THIS TIME THE ORDER FROM DR. HUNTLEY TO STAY IN THE ROOM, IF HE WAS TO LEAVE HE WOULD BE DISCHARGED. EXPLAINED TO HIM THE RISK OF HIM BEING DISCHARGED AMA WITH THE SEVERITY OF HIS INFECTION. EXPLAINED TO HIM THE CONCERNS ABOUT HIS IV AND THAT HE CONTINUES TO LOOSE THEM. ENCOURAGED HIM TO STAY AND GET THE TREATMENT. WENT THROUGH THIS SEVERAL TIMES WITH HIM EXPLAINING THE ORDER SO HE WOULD UNDERSTAND. HE AGREED TO STAY IN THE ROOM. 2049- PATIENT WAS IN BATHROOM WHEN IV WAS SOUNDING. HE HAD TURNED OFF THE MACHINE CAUSE IT WAS MAKING TO MUCH NOISE. GAVE HIM HIS ANXIETY MEDICATION REQUESTED. THEN STARTED TO HEAD OUT OF THE ROOM. INFORMED HIM AGAIN OF THE ORDER AND THAT HE MUST STAY IN THE ROOM. HE SAID HE JUST NEEDED TO GO FOR A SHORT WALK TO HELP HIS ANXIETY. INFORMED HIM HE COULD ONLY GO IN THE POWELL BUT HE MUST NOT LEAVE THE FLOOR AT ALL. IF HE DOES IT IS A IMMEDIATE DISCHARGE. 9-PATIENT STAYED ON THE FLOOR AND NOW IS BACK IN THE ROOM.
--- NOTE | 2019-10-29 02:00 | NUR ---
0200- WHILE ON LUNCH, RECEIVED A CALL THAT THE PATIENT LEFT HIS ROOM, AND THE FLOOR DISPITE BEING TOLD AGAIN BY THE SEPHORA OPERATIONS CONSULTANT THAT HE IS NOT TO LEAVE. HE SAID HE WAS JUST GOING DOWN TO THE VENDING MACHINES. SEPHORA OPERATIONS CONSULTANT CALLED CHARGE NURSE DAYSI AND SHE CALLED SECURITY TO BRING HIM BACK TO THE ROOM. THEY HAD FOUND HIM IN THE STAIR WELL. WAS INFORMED HE WAS VERY ANGRY ABOUT IT. WHEN ARRIVED TO THE ROOM AFTER LUNCH HE WAS SOUND ASLEEP IN HIS BED.
--- NOTE | 2019-10-29 03:45 | NUR ---
0345- DOMINGA WOKE UP WALKING THE POWELL, SLIGHTLY CONFUSED, ASKING WHAT HAPPENED WITH HIS ANTIBOTIC. HE DOES NOT REMEMBER THAT I WENT IN THE ROOM HAD DISCONNECTED HIM FROM THE IV AROUND 0050. INFORMED HIM NEXT DOSE WAS NOT TILL 8 AM, ENCOURAGED HIM TO LAY BACK DOWN AND SLEEP FOR THE REST OF THE NIGHT.
--- NOTE | 2019-10-29 06:17 | NUR ---
WENT TO GO FLUSH IV FOR ZOFRAN ADMINISTRATION. IV BLEW. REMOVED IV DID NOT GIVE ZOFRAN, INFORMED DAYSI SANTANACOMPUTER REPAIR ENGINEER OF IV BLOWING, PATIENT HAS BEEN IN ROOM MOST OF THE NIGHT AND WAS NOT MESSING WITH THE IV THIS TIME FOR IT TO GO BAD. WILL LET DAY [facility] KNOW,
--- NOTE | 2019-10-29 07:37 | NUR ---
SHIFT SUMMARY: DOMINGA WAS VERY IRRITABLE, ANGRY AT START OF SHIFT DUE TO NEEDING IV ANTIBOTICS THAT WERE LATE AND IV GOING BAD. LETICIA SANTANA WAS ABLE TO PLACE AN 18 G RIGHT OFF START. HE INSISTED THAT HE GO OUTSIDE RIGHT AFTER. WHEN HE CAME BACK NOT ONLY WAS THE IV BAD, BUT HIS BEHAVIOR WAS DIFFERENT. HE HAD TROUBLE COMPERHENDING CONVERSATION, WAS MORE IN A DAZE, EYES WERE GLAZED OVER, AND HE COULDN;T KEEP HIS EYES OPEN. HE WAS ALSO MORE IRRITABLE, AGGITATED, WITH FIGITING AND SWAYING BACK AND FORTH. THERE WERE SEVERAL TIMES HE CONCERNED US THAT HE MIGHT PASS OUT AND FALL OVER. DUE TO IV'S CONTINUING TO GO BAD, ESPECIALLY AFTER GOING OUTSIDE, DR. HUNTLEY WAS INFORMED GIVEING US AN ORDER TO KEEP HIM IN HIS ROOM, IF HE LEFT HE WOULD GET DC'S AMA. HE WAS INFORMED OF THIS AFTER HE RETURNED TO HIS ROOM, AND NEW IV WAS STARTED. HE WAS ALLOWED TO WALK ONLY THE HALLWAY BUT NOT TO LEAVE THE FLOOR. IV VANCO WAS GIVEN LATE AND TIMES ADJUSTED. IV WAS SL IT WAS POSITIONAL AND CONTINUED TO BEEP. HE DID ATTEMPT TO LEAVE ONE OTHER TIME AND SECURITY FOUND HIM IN A DAZE IN THE STAIR WELL. AFTER THAT HE AGREED TO STAY IN ROOM. HE SLEPT FOR A FEW HOURS WAKING UP THIS MORNING. WENT TO FLUSH IV AND IT BLEW AGAIN. MEDS WERE GIVEN WHEN REQUESTED. HE CONTINUED TO COMPLAIN OF PAIN EVEN AFTER MEDS GIVEN, DISPITE HIM FALLING ASLEEP MOST OF THE TIME. NEW IV WAS STARTED THIS AM BEFORE SHIFT CHANGE. HE WAS EDUCATED ON THE ORDER TO NOT LEAVE AND THE RISK FACTORS SEVERAL TIMES THROUGHOUT THE NIGHT. VS REMAINED STABLE. NO OTHER CHANGES TO REPORT.
[2019-10-29] MEDS ORDERED: Vsl#3 Capsule1 EACH (10:10)
[2019-10-29] MEDS ORDERED: CLIN300 PO (10:11)
[2019-10-29] MEDS ORDERED: IBUP400 PO (10:12)
--- NOTE | 2019-10-29 15:19 | NUR ---
DISCHARGE INSTRUCTIONS COMPLETED AND DISCUSSED WITH PT EXPRESSING UNDERSTANDING. R CALF WOUND DRESSING CHANGED PER DR. DE SOUZA. METHADONE DOSE CHANGED PER CONVERSATION WITH [facility] ON SATURDAY AND PER DR. PAGE. WAITING FOR HIS GRANDMA TO PICK HIM UP. LAYING IN BED SLEEPING
--- NOTE | 2019-10-29 15:40 | NUR ---
PT AMBULATED SELF OUT OF HOSPITAL WITH BELONGINGS AND INFORMATION. DIDN'T NOTIFY ANYONE OF RIDE BEING HERE AND LEAVING ROOM.
== END 2019-10-29 15:36 | disposition home or self-care (01) | DRG 572 ==
LOC: ER 11:51 → MEDS 11:52 → ERHOLD 11:52 → MEDS 15:58 → ER 15:58 → ERHOLD 15:58 → MEDS 18:20 → ERHOLD 18:20 → MEDS 10-25 12:03 → ENPENDDIS 10-29 09:00 → MEDS 10-29 15:36
PROVIDERS: Internal Medicine; Orthopaedic Surgery; Physician Assistant; ADMIT Internal Medicine
PROC: 0JBN0ZZ Excision of Right Lower Leg Subcutaneous Tissue and Fascia, Open Approach (ICD-10-PCS; principal; 2019-10-27 16:00)
DX: L02.415 Cutaneous abscess of right lower limb (principal); L03.115 Cellulitis of right lower limb; A49.02 Methicillin resistant Staphylococcus aureus infection, unspecified site; F17.210 Nicotine dependence, cigarettes, uncomplicated; F31.9 Bipolar disorder, unspecified; Z59.0 Homelessness; F43.10 Post-traumatic stress disorder, unspecified; Z88.0 Allergy status to penicillin; Z88.2 Allergy status to sulfonamides; F11.10 Opioid abuse, uncomplicated; F41.9 Anxiety disorder, unspecified; F32.9 Major depressive disorder, single episode, unspecified
CPT/HCPCS: 36415; 73700; 76882; 80048; 80053; 80069; 80202; 83605; 84145; 85025; 85027; 87040; 87070; 87075; 87077; 87186; 87205; 94760; 96365; 96366; 96367; 99284-25; A9270-GY; J1100; J1170; J1885; J1956; J2060; J2250; J2405; J2704; J3010; J3370; J7030; J7050; J7120

== ENCOUNTER 2020-10-09 11:59 | Emergency (ER) | payer OTHER ==
[~2020-10-09] VITALS: Ht 170.2 cm; Wt 86.2 kg
[~2020-10-09 11:59] MED LIST changes: +CLON.5 PO; +IBUP400 PO; +LAMO100 PO; +Lamictal25 MG PO; +METH10 PO; +Vsl#3 Capsule1 EACH
[2020-10-09] MEDS ORDERED: METH40 PO (13:12)
[2020-10-09] MEDS ORDERED: NARCAN4 M1 (14:05)
== END 2020-10-09 14:46 | disposition home or self-care (01) ==
LOC: ER 11:59
DX: Z76.0 Encounter for issue of repeat prescription (principal); R00.0 Tachycardia, unspecified; F41.9 Anxiety disorder, unspecified; F17.210 Nicotine dependence, cigarettes, uncomplicated
CPT/HCPCS: 99283; A9270

== ENCOUNTER 2021-09-21 20:48 | Emergency (ER) | payer OTHER ==
[~2021-09-21] VITALS: Ht 170.2 cm; Wt 90.7 kg
[~2021-09-21 20:48] MED LIST changes: +METH40 PO; +NARCAN4 M1
[2021-09-21] MEDS ORDERED: Clindamycin HC150 MG PO (22:37)
[2021-09-22] MEDS ORDERED: NAPR500 PO (05:35)
== END 2021-09-21 22:47 | disposition home or self-care (01) ==
LOC: ER 20:48
DX: S62.634B Displaced fracture of distal phalanx of right ring finger, initial encounter for open fracture (principal); Z88.2 Allergy status to sulfonamides; Z88.0 Allergy status to penicillin; F17.210 Nicotine dependence, cigarettes, uncomplicated; X58.XXXA Exposure to other specified factors, initial encounter
CPT/HCPCS: 11740; 73140; 99283-25

== ENCOUNTER 2021-09-22 05:10 | Emergency (ER) | payer OTHER ==
[~2021-09-22] VITALS: Ht 170.2 cm; Wt 90.7 kg
[~2021-09-22 05:10] MED LIST changes: +Clindamycin HC150 MG PO
[2021-09-22] MEDS ORDERED: NAPR500 PO (05:35)
== END 2021-09-22 05:48 | disposition home or self-care (01) ==
LOC: ER 05:10
DX: S62.634A Displaced fracture of distal phalanx of right ring finger, initial encounter for closed fracture (principal); Z88.0 Allergy status to penicillin; Z88.2 Allergy status to sulfonamides; F17.210 Nicotine dependence, cigarettes, uncomplicated; X58.XXXA Exposure to other specified factors, initial encounter
CPT/HCPCS: 99282; A9270

== ENCOUNTER → 2022-04-06 | Outpatient (CLI) | payer OTHER ==
[2022-04-06 11:13] LABS: U Amphetamine Screen DETECTED; U Barbituate Screen Not Detected; U Benzodiazapine Screen Not Detected; U Cocaine Screen Not Detected; U Methamphetamine Screen Not Detected
[2022-04-06 11:14] LABS: U Buprenorphine Screen Not Detected; U Cannabinoids Screen Not Detected; U Methadone Screen DETECTED; U Opiates Screen Not Detected; U Oxycodone Screen Not Detected; U Phencyclidine Screen Not Detected; U Propoxyphene Screen Not Detected
== END ==
LOC: LAB 08:15 → LAB SHORT 08:15
PROVIDERS: Nurse Practitioner Psychiatric/Mental Health
DX: F90.2 Attention-deficit hyperactivity disorder, combined type (principal)